=== PATIENT | male | born 1990 | race Caucasian/White ===

== ENCOUNTER 2016-09-12 00:52 | Emergency (ER) | payer BC ==
[~2016-09-12] VITALS: Ht 172.7 cm; Wt 79.4 kg
[2016-09-12 00:57] VITALS: BP 144/83
[2016-09-12] MEDS ORDERED: LIDOCAINE 1% / SOD BICARB 8.4% 20 ML VIAL. IJ ONE (02:00)
--- NOTE | 2016-09-12 03:23 | PHYS DOC ---
Past Medical History Past Medical History: Other Additional Past Medical Histor: herniated disc Past Surgical History: Tonsillectomy Alcohol Use: Occasionally Drug Use: None Adult General Chief Complaint Chief Complaint: LACERATION/AVULSION HPI HPI Patient is a 26 year old male who presents with finger laceration. Patient states shortly prior to arrival his hand slipped while he was holding a pocket knife. He sustained laceration to right index finger. This is his dominant hand. Last tetanus in June of this year. Denies other injuries. Review of Systems Review of Systems Constitutional: Denies fever HENT: Denies nasal congestion or sore throat Respiratory: Denies cough or shortness of breath Musculoskeletal: Denies back pain or joint pain Integument: Reports laceration Neurologic: Denies headache Current Medications Current Medications Current Medications Medications (Trade) Dose Ordered Sig/Suzanna Start Time Stop Time Status Last Admin Dose Admin Lidocaine/Sodium Bicarbonate (Buffered Lidocaine 1%) 20 ml 1X ONCE 09/12/16 02:00 09/12/16 02:00 DC 09/12/16 01:46 20 ML Allergies Allergies Allergies Coded Allergies Type Severity Reaction Last Updated Verified No Known Drug Allergies 09/12/16 No Physical Exam Physical Exam Constitutional: Well developed, well nourished, no acute distress, non-toxic appearance. HENT: Normocephalic, atraumatic, bilateral external ears normal, oropharynx moist, nose normal. Eyes: conjunctiva normal, no discharge. Cardiovascular: no edema. Lungs & Thorax: no respiratory distress. Abdomen: nondistended. Skin: Warm, dry, laceration as below Extremities: No deformity, right index finger with 3 cm laceration over volar proximal phalanx, no bony pain, normal ROM at MCP & PIP, no tendon involvement, sensation intact to distal fingertip. Neurologic: Alert and oriented X 3 Current Patient Data Vital Signs Vital Signs Date Time Temp Pulse Resp B/P Pulse Ox O2 Delivery O2 Flow Rate FiO2 09/12/16 00:57 98.0 84 12 96 Room Air 98.0 EKG EKG [] Radiology/Procedures Radiology/Procedures [] Course & Med Decision Making Course & Med Decision Making Pertinent Labs and Imaging studies reviewed. (See chart for details) Patient presents with laceration, tetanus up to date. Repaired by me as below. Recommend wound care, follow up in 7 days for suture removal. Come back for signs of wound infection or otherwise worsening condition. Discharged home in stable condition. [] Dragon Disclaimer Dragon Disclaimer This electronic medical record was generated, in whole or in part, using a voice recognition dictation system. Laceration Repair Lac Repair Indication: finger laceration Procedure: The patient was placed in the appropriate position and anesthesia around the laceration was achieved by digital block using 3 ml of buffered 1% lidocaine. The area was then irrigated with a copious amount of saline by ED RN. The laceration was repaired using 5-0 ethilon, 3 simple interrupted sutures. The wound area was then dressed with gauze. Total repaired wound length: 3 cm. The patient tolerated the procedure well. Complications: none. Departure Departure Impression: Primary Impression: Finger laceration Disposition: HOME, SELF-CARE Condition: STABLE Referrals: NO PCP (PCP) Patient Instructions: Laceration Care, Adult, [id number] Additional Instructions: You were seen in the emergency department today for finger laceration. Wash twice daily with soap & water. Follow up for suture removal in about 7 days. Come back for high fever, hot/red/swollen skin, pus draining from the wound, otherwise worsening condition. ROSA HELM MD September 12, 2016 03:23
== END 2016-09-12 01:57 | disposition home or self-care (01) ==
LOC: ER 00:52
DX: S61.210A Laceration without foreign body of right index finger without damage to nail, initial encounter (principal); W26.0XXA Contact with knife, initial encounter; Y93.89 Activity, other specified; Y99.8 Other external cause status; Y92.89 Other specified places as the place of occurrence of the external cause
CPT/HCPCS: 12002; 99283-25

== ENCOUNTER 2017-01-19 20:06 | Emergency (ER) | payer BC ==
[~2017-01-19] VITALS: Ht 172.7 cm; Wt 83.9 kg
--- NOTE | 2017-01-19 20:46 | PHYS DOC ---
Past Medical History Past Medical History: Other Additional Past Medical Histor: herniated disc Past Surgical History: Tonsillectomy Alcohol Use: Occasionally Drug Use: None Adult General Chief Complaint Chief Complaint: ABSCESS HPI HPI Patient is a 26 year old male presents to the emergency department with complaints of left upper leg injury. He states 2 days ago he was mowing when a piece of metal struck him in the thigh. He states the metal did not remain in his thigh because the laceration. He's complaining of redness and swelling around the puncture site. He reports no fever, no myalgias, no arthralgia. Last tetanus immunization is up-to-date. Review of Systems Review of Systems Constitutional: Denies fever or chills [] Eyes: Denies change in visual acuity, redness, or eye pain [] HENT: Denies nasal congestion or sore throat [] Respiratory: Denies cough or shortness of breath [] Cardiovascular: No additional information not addressed in HPI [] GI: Denies abdominal pain, nausea, vomiting, bloody stools or diarrhea [] : Denies dysuria or hematuria [] Musculoskeletal: Denies back pain or joint pain [] Integument: Laceration with redness and swelling Neurologic: Denies headache, focal weakness or sensory changes [] Endocrine: Denies polyuria or polydipsia [] Current Medications Current Medications Current Medications Medications (Trade) Dose Ordered Sig/Suzanna Start Time Stop Time Status Last Admin Dose Admin Ketorolac Tromethamine (Toradol Im) 60 mg 1X ONCE 01/19/17 21:00 01/19/17 21:01 Allergies Allergies Allergies Coded Allergies Type Severity Reaction Last Updated Verified No Known Drug Allergies 09/12/16 No Physical Exam Physical Exam Constitutional: Well developed, well nourished, no acute distress, non-toxic appearance. [] HENT: Normocephalic, atraumatic, bilateral external ears normal, oropharynx moist, no oral exudates, nose normal. [] Neck: Normal range of motion, no tenderness, supple without lymphadenopathy, no stridor. [] Cardiovascular:Heart rate regular rhythm, no murmur [] Lungs & Thorax: Bilateral breath sounds clear to auscultation [] Skin: Warm, dry, left anterior thigh with 1 cm superficial laceration with 6 cm of surrounding erythema, there is approximately 3 cm of induration. Small amount of. Discharge noted from the wound. Extremities: no cyanosis, no clubbing, ROM intact, no edema. [] Neurologic: Alert and oriented X 3, normal motor function, normal sensory function, no focal deficits noted. [] Psychologic: Affect normal, judgement normal, mood normal. [] EKG EKG [] Radiology/Procedures Radiology/Procedures [] Course & Med Decision Making Course & Med Decision Making Pertinent Labs and Imaging studies reviewed. (See chart for details) []The patient declines the x-ray, he is adamant that there is no foreign body in the leg. I did discuss with him the possibility that a fragment of metal remains in the leg. I discussed with him the risk and benefit of having an x- ray with diagnosis for possible foreign body. Patient continues to deny and declined having an x-ray. He has agreed to sign out AGAINST MEDICAL ADVICE for partial refusal of care. Patient will be discharged home with antibiotics and pain medications and plan for close follow-up. He was advised return to the emergency Department for new symptoms or concerns or worsening of current condition. Patient verbalizes understanding and is in agreement with this plan. Dragon Disclaimer Dragon Disclaimer This electronic medical record was generated, in whole or in part, using a voice recognition dictation system. Departure Departure Impression: Primary Impression: Abscess or cellulitis of thigh Disposition: 01 HOME, SELF-CARE Condition: STABLE Referrals: NO PCP (PCP) [facility] Patient Instructions: Abscess, Cellulitis, Delayed Wound Closure Additional Instructions: Turn to the emergency Department for new symptoms or concerns, fever, worsening of current condition. Please follow-up with your primary care provider in one day. Scripts Tramadol Hcl (TRAMADOL HCL) 50 Mg Tablet 50 MG PO Q6H Y for PAIN, #15 TAB Prov: MARY MONROE APRN 01/19/17 Ibuprofen (IBUPROFEN) 800 Mg Tablet 800 MG PO PRN Q6HRS Y for INFLAMMATION, #20 TAB Prov: MARY MONROE APRN 01/19/17 Sulfamethoxazole/Trimethoprim (BACTRIM DS TABLET) 1 Each Tablet 1 TAB PO BID, #20 TAB Prov: MARY MONROE APRN 01/19/17 MARY MONROE APRN Jan 19, 2017 20:46
[2017-01-19 20:59] VITALS: BP 149/78
[2017-01-19] MEDS ORDERED: KETOROLAC TROMETHAMINE 60 MG/2 ML INJ. IM ONE (21:00)
[2017-01-19] MEDS ORDERED: IBUP-1060 PO (21:03)
[2017-01-19] MEDS ORDERED: SULF1TAB24 PO (21:03)
[2017-01-19] MEDS ORDERED: TRAM50TA PO (21:03)
== END 2017-01-19 21:35 | disposition home or self-care (01) ==
LOC: ER 20:06
DX: L03.116 Cellulitis of left lower limb (principal); S71.112A Laceration without foreign body, left thigh, initial encounter; Y28.8XXA Contact with other sharp object, undetermined intent, initial encounter; Y93.89 Activity, other specified; Y99.8 Other external cause status; Y92.89 Other specified places as the place of occurrence of the external cause
CPT/HCPCS: 96372; 99283; J1885

== ENCOUNTER 2017-06-10 17:33 | Emergency (ER) | payer BC ==
[2017-06-10] MEDS ORDERED: HYDROcodone/APAP 10/325 1 TAB TABLET ×2 (18:16)
[2017-06-10] MEDS ORDERED: LIDOCAINE 1% PF 2 ML VIAL. ×2 (18:16)
[2017-06-10] MEDS: cefTRIAXone IM 1 GM VIAL IM ×2 (18:19)
[2017-06-10] MEDS: LIDOCAINE 1% PF 2 ML VIAL. INJ ×2 (18:19)
== END 2017-06-10 18:34 | disposition home or self-care (01) ==
LOC: ER 17:33
DX: L03.116 Cellulitis of left lower limb (principal)
CPT/HCPCS: 96372; 99284; J0696